=== PATIENT | female | born 1975 | race Hispanic/Latino ===

== ENCOUNTER 2018-08-29 14:21 | Emergency (ER) | payer OTHER ==
[~2018-08-29] VITALS: Ht 162.6 cm; Wt 89.8 kg
--- OUTSIDE RECORDS SUMMARY | 2018-08-29 14:25 | XMS REPORT ---
[facility] Address Unknown Phone Unavailable Care Team Providers Care Telegraph Mechanic Name Role Phone Unavailable Unavailable Problems This patient has no known problems. Allergies, Adverse Reactions, Alerts This patient has no known allergies or adverse reactions. Medications This patient has no known medications. Encounters Start Date/Time End Date/Time Encounter Type Admission Type Attending [facility] Facility Care Department Encounter ID 2018-07-27 00:00:00 2018-07-27 00:00:00 Outpatient [facility] [id number] 2018-06-15 00:00:00 2018-06-15 00:00:00 Outpatient [facility] [id number] 2018-06-12 00:00:00 2018-06-12 00:00:00 Outpatient [facility] [id number] 2018-05-12 00:00:00 2018-05-12 00:00:00 Outpatient [facility] [id number] 2018-05-02 00:00:00 2018-05-02 00:00:00 Outpatient [facility] [id number] 2018-04-18 00:00:00 2018-04-18 00:00:00 Outpatient [facility] [id number] 2018-04-18 00:00:00 2018-04-18 00:00:00 Outpatient [facility] [id number] 2018-04-18 00:00:00 2018-04-18 00:00:00 Outpatient [facility] [id number] 2018-04-14 14:22:48 2018-04-14 14:22:48 Outpatient [facility] [id number] 2018-04-03 00:00:00 2018-04-03 00:00:00 Outpatient [facility] [id number] 2018-03-24 08:47:33 2018-03-24 08:47:33 Outpatient [facility] [id number] 2018-03-07 00:00:00 2018-03-07 00:00:00 Outpatient [facility] [id number] 2018-02-21 08:44:32 2018-02-21 08:44:32 Outpatient [facility] [id number] 2018-02-21 07:52:20 2018-02-21 07:52:20 Outpatient [facility] [id number] 2018-01-12 00:00:00 2018-01-12 00:00:00 Outpatient [facility] [id number] 2018-01-06 00:00:00 2018-01-06 00:00:00 Outpatient [facility] [id number] 2017-12-29 08:03:54 2017-12-29 08:03:54 Outpatient [facility] [id number] 2017-12-22 09:52:17 2017-12-22 09:52:17 Outpatient [facility] [id number] 2017-12-21 08:43:35 2017-12-21 08:43:35 Outpatient [facility] [id number] 2017-12-19 12:40:01 2017-12-19 12:40:01 Outpatient [facility] [id number] 2017-12-07 08:30:42 2017-12-07 08:30:42 Outpatient [facility] [id number] 2017-12-06 08:50:03 2017-12-06 08:50:03 Outpatient [facility] [id number] 2017-11-25 00:00:00 2017-11-25 00:00:00 Outpatient [facility] [id number] 2017-11-24 12:52:50 2017-11-24 12:52:50 Outpatient [facility] [id number] 2017-11-23 08:51:43 2017-11-23 08:51:43 Outpatient [facility] [id number] 2017-11-15 07:10:13 2017-11-15 07:10:13 Outpatient [facility] [id number] 2017-11-15 00:00:00 2017-11-15 00:00:00 Outpatient [facility] [id number] 2017-11-15 00:00:00 2017-11-15 00:00:00 Outpatient [facility] [id number] 2017-11-10 14:04:53 2017-11-10 14:04:53 Outpatient [facility] [id number] 2017-10-26 12:24:21 2017-10-26 12:24:21 Outpatient [facility] [id number] 2017-10-26 11:07:31 2017-10-26 11:07:31 Outpatient [facility] [id number] 2017-10-04 00:00:00 2017-10-04 00:00:00 Outpatient [facility] [id number] 2017-09-23 00:00:00 2017-09-23 00:00:00 Outpatient [facility] [id number] 2017-07-14 00:00:00 2017-07-14 00:00:00 Outpatient [facility] [id number] 2017-07-01 00:00:00 2017-07-01 00:00:00 Outpatient [facility] [id number] 2017-06-27 11:41:54 2017-06-27 11:41:54 Outpatient [facility] [id number] 2017-06-22 08:38:36 2017-06-22 08:38:36 Outpatient [facility] [id number] 2017-06-16 08:28:05 2017-06-16 08:28:05 Outpatient [facility] [id number] 2017-06-03 12:52:18 2017-06-03 12:52:18 Outpatient [facility] [id number] 2017-06-03 12:30:06 2017-06-03 12:30:06 Outpatient [facility] [id number] 2017-06-03 10:02:42 2017-06-03 10:02:42 Outpatient [facility] [id number] 2017-03-25 15:10:26 2017-03-25 15:10:26 Outpatient [facility] [id number] 2016-12-16 08:15:17 2016-12-16 08:15:17 Outpatient [facility] [id number]
== END 2018-08-29 15:15 | disposition home or self-care (01) ==
LOC: FSED 14:21
DX: R10.30 Lower abdominal pain, unspecified (principal); R11.0 Nausea; N30.91 Cystitis, unspecified with hematuria
CPT/HCPCS: 81003; 81025; 99283